=== PATIENT | female | born 1980 | race Caucasian/White ===

== ENCOUNTER 2017-09-15 11:15 | Outpatient (CLI) | payer OTHER ==
--- NOTE | 2017-09-15 12:01 | ULT ---
THYROID SONOGRAM: HISTORY: Neck pain and swelling. FINDINGS: Right thyroid lobe is 4.3 cm. At the inferior pole is a lobular well-circumscribed heterogeneous pre dominantly hypoechoic mass measuring up to 2.5 x 1.5 x 1.4 cm. Isthmus is 0.3 cm. The left thyroid lobe is 4.0 cm with a heterogeneous echotexture. Near the inferior pole anteriorly is a smoothly marginated well-circumscribed heterogeneous hypoechoic nodule measuring up to 0.6 x 0.4 x 0.3 cm. IMPRESSION: Given the dominant nodule at the inferior pole right thyroid lobe, 2.5 cm, further evaluation is jarrett anted. Please consider ENT evaluation. Sonographic guidance for fine needle aspiration and cytology could be used if necessary. POS: ROBERTA
== END 2017-09-15 11:16 | disposition home or self-care (01) ==
LOC: SCSULT 11:15
PROVIDERS: ATTEND Family Medicine
DX: R22.1 Localized swelling, mass and lump, neck (principal); E04.1 Nontoxic single thyroid nodule
CPT/HCPCS: 76536

== ENCOUNTER 2018-07-10 15:45 | Outpatient (CLI) | payer OTHER ==
--- NOTE | 2018-07-10 16:19 | RAD ---
Exam: Left hand 2 views: HISTORY: Pain and swelling of joints of fingers for several weeks COMPARISON: None FINDINGS: No fracture or dislocation or other acute process. IMPRESSION: Unremarkable 2 view left hand.
--- NOTE | 2018-07-10 16:42 | RAD ---
Exam: Right hand 2 views: HISTORY: Right hand pain COMPARISON: None FINDINGS: No fracture, dislocation, or other acute process. IMPRESSION: Unremarkable right hand 2 views
== END 2018-07-10 15:46 | disposition home or self-care (01) ==
LOC: SCSRAD 15:45
PROVIDERS: ATTEND Family Medicine
DX: M79.641 Pain in right hand (principal); M79.642 Pain in left hand

== ENCOUNTER 2018-11-29 11:22 | Emergency (ER) | payer OTHER ==
[~2018-11-29 11:22] MED LIST: Iopamidol 370 76% 100 ML VIAL ONE
[2018-11-29 12:03] LABS: Bilirubin Negative (Negative); Blood, Urine Trace (Negative); Clarity Clear (Clear); Glucose, Urine (Dipstick) Negative (Negative); Leukocyte Negative (Negative); Nitrite Negative (Negative); Protein, Urine (Dipstick) Negative (Neg-Trace); Urobilinogen 0.2 mg/dL (Less than 2)
[2018-11-29 12:06] LABS: #Basophils 0.1 thou/uL (0.0-0.2); #Eosinphils 0.2 thou/uL (0.0-0.7); #Lymphocytes 2.7 thou/uL (1.20-3.40); #Monocytes 0.6 thou/uL (0.11-0.59); #Neutrophils 4.9 thou/uL (1.40-6.50); %Basophils 0.9 % (0.0-1.0); %Eosinophils 2.4 % (0.0-10.0); %Lymphocytes 31.8 % (21.0-51.0); %Monocytes 7.5 % (0.0-10.0); %Neutrophils 57.3 % (42.0-75.0); Hemoglobin 15.2 g/dL (12.0-16.0); Mean Corpuscular HGB CONC 35.1 g/dL (32.0-36.0); Mean Corpuscular Hemoglobin 33.3 pg (27.0-31.0); Mean Corpuscular Volume 94.7 fL (78.0-98.0); Mean Platelet Volume 8.7 fL (7.4-10.4); Platelet Count 243 thou/uL (130-400); RBC Distribution Width 11.6 % (11.5-14.5); Red Blood Cell (RBC) Count 4.57 mill/uL (4.20-5.40); White Blood Cell (WBC) Count 8.6 thou/uL (4.8-10.8)
[2018-11-29] MEDS ORDERED: Ondansetron PF 4 MG/2 ML Vial ONE (12:06)
[2018-11-29] MEDS ORDERED: Morphine 4 MG/ML VIAL ONE (12:06)
[2018-11-29 12:15] LABS: Bacteria/HPF 1+ HPF (None Seen); RBC/HPF 0-3 HPF (0-3); WBC/HPF None Seen HPF (0-3)
[2018-11-29 13:36] LABS: ALT (SGPT) 18 U/L (8-55); AST (SGOT) 14 U/L (5-34); Albumin 4.1 g/dL (3.5-5.0); Alkaline Phosphatase 74 U/L (40-150); Anion Gap 11 mmol/L (10-20); BUN (Urea Nitrogen) 5 mg/dL (7.0-18.7); Bilirubin, Total 0.4 mg/dL (0.2-1.2); Calc. Creatinine Clearance 0 mL/min (70-130); Calcium 8.9 mg/dL (7.8-10.44); Carbon Dioxide 24 mmol/L (22-29); Chloride 104 mmol/L (98-107); Estimated GFR-MDRD 80; Globulin 2.6 g/dL (2.4-3.5); Glucose 77 mg/dL (70-105); Lipase 10 U/L (8-78); Potassium 3.8 mmol/L (3.5-5.1); Protein, Total 6.7 g/dL (6.0-8.3); Sodium 135 mmol/L (136-145)
--- NOTE | 2018-11-29 14:06 | CT ---
CT Appendix Protocol History: Evaluate for appendicitis. Pain. Comparison: None. Findings: Lung bases are clear. No pericardial effusion. Prior cholecystectomy. Liver, spleen, pancreas, adrenal glands are unremarkable. Mild prominence of the extrahepatic biliary system. The aortoiliac contour is nonaneurysmal. The appendix is visualized and is normal. There is a right adnexal and left adnexal hypodensity with a hemorrhagic right corpus luteum cyst. Sm all volume adjacent hemorrhage. No acute osseous abnormality. Impression: Ruptured right corpus luteal cyst with small adjacent hemorrhage likely source of patient 's pain. Appendix is normal.
[2018-11-29] MEDS ORDERED: Ketorolac Tromethamine 30 MG/ML VIAL ONE (14:22)
== END 2018-11-29 14:37 | disposition home or self-care (01) ==
LOC: SCSER 11:22
DX: N83.291 Other ovarian cyst, right side (principal); R19.7 Diarrhea, unspecified; Z71.6 Tobacco abuse counseling; K21.9 Gastro-esophageal reflux disease without esophagitis; F41.9 Anxiety disorder, unspecified; F32.9 Major depressive disorder, single episode, unspecified; Z79.899 Other long term (current) drug therapy
CPT/HCPCS: 74177; 80053; 81003; 81015; 83605; 83690; 85025; 96361; 96374; 96375; J1885; J2270; J2405; Q9967

== ENCOUNTER 2019-09-04 14:41 | Outpatient (CLI) | payer OTHER ==
--- NOTE | 2019-09-04 15:01 | RAD ---
RIGHT HAND: 09/04/19 Three views. HISTORY: Pain right thumb. Very mild DJD at the first carpometacarpal. Also very mild DJD at the first MCP joint with minimal sp urring seen. The other MCP joints unremarkable. IP joints unremarkable. No fracture or dislocation. IMPRESSION: Very mild degenerative changes involving the thumb as described. POS: AH
== END 2019-09-04 14:42 | disposition home or self-care (01) ==
LOC: BICRAD 14:41
PROVIDERS: ATTEND Nurse Practitioner Family
DX: M79.644 Pain in right finger(s) (principal); M19.041 Primary osteoarthritis, right hand

== ENCOUNTER 2022-05-06 13:01 | Outpatient (CLI) | payer OTHER ==
[2022-05-06 16:33] LABS: #Eosinphils 0.1 thou/uL (0.0-0.7); #Lymphocytes 2.9 thou/uL (1.20-3.40); #Monocytes 0.5 thou/uL (0.11-0.59); #Neutrophils 6.5 thou/uL (1.40-6.50); %Basophils 0.4 % (0.0-1.0); %Eosinophils 1.5 % (0.0-10.0); %Lymphocytes 28.6 % (21.0-51.0); %Monocytes 4.7 % (0.0-10.0); %Neutrophils 64.7 % (42.0-75.0); Hemoglobin 15.2 g/dL (12.0-16.0); Mean Corpuscular HGB CONC 33.9 g/dL (32.0-36.0); Mean Corpuscular Volume 97.2 fl (78.0-98.0); Mean Platelet Volume 8.1 fL (7.4-10.4); Platelet Count 290 10x3/uL (130-400); RBC Distribution Width 11.4 % (11.5-14.5); Red Blood Cell (RBC) Count 4.61 mill/uL (4.20-5.40); White Blood Cell (WBC) Count 10.1 10x3/uL (4.8-10.8)
[2022-05-06 17:19] LABS: ALT (SGPT) 28 U/L (8-55); AST (SGOT) 26 U/L (5-34); Albumin 4.3 g/dL (3.5-5.0); Alkaline Phosphatase 73 U/L (40-110); Anion Gap 15 mmol/L (10-20); BUN (Urea Nitrogen) 5 mg/dL (7.0-18.7); Bilirubin, Total 0.4 mg/dL (0.2-1.2); CRP (Inflammatory) 1.22 mg/dL (= or < 0.5); Calc. Creatinine Clearance 0 mL/min (70-130); Calcium 9.5 mg/dL (7.8-10.44); Carbon Dioxide 26 mmol/L (22-29); Chloride 103 mmol/L (98-107); Estimated GFR 76; Globulin 2.7 g/dL (2.4-3.5); Glucose 153 mg/dL (70-105); Potassium 3.6 mmol/L (3.5-5.1); Sodium 140 mmol/L (136-145)
[2022-05-06 17:39] LABS: Thyroid Stimulating Hormone 1.6529 uIU/mL (0.35-4.94)
[2022-05-08 17:32] LABS: EliA Celiac New Method **** NEW METHOD ****; Gliadin IgA Ab, Deamidated 3.4 EliAU/mL (<7 Negative); Gliadin IgG Ab, Deamidated Less than 0.6 EliAU/mL (<7 Negative); t-Transglutaminase (tTG) IgA 0.5 EliAU/mL (<7 Negative); t-Transglutaminase (tTG) IgG Less than 0.6 EliAU/mL (<7 Negative)
== END 2022-05-06 13:02 | disposition home or self-care (01) ==
LOC: SCSRAD 13:01
PROVIDERS: ATTEND Family Medicine
DX: R06.09 Other forms of dyspnea (principal); R50.9 Fever, unspecified; R19.7 Diarrhea, unspecified; D75.89 Other specified diseases of blood and blood-forming organs; R53.83 Other fatigue
CPT/HCPCS: 36415; 71046; 80053; 81001; 82607; 82746; 83516; 84443; 85025; 85652; 86140; 87086